=== PATIENT | male | born 1985 | race Caucasian/White ===

== ENCOUNTER 2017-08-30 10:12 | Emergency (ER) | payer MEDICAID ==
[~2017-08-30] VITALS: Ht 185.4 cm; Wt 127.0 kg
[2017-08-30 10:24] VITALS: BP 143/82; Ht 185.4 cm; Wt 127.0 kg
== END 2017-08-30 11:31 | disposition home or self-care (01) ==
LOC: ED 10:12
DX: L03.011 Cellulitis of right finger (principal)